=== PATIENT | female | born 1960 | race Caucasian/White ===

== ENCOUNTER 2017-11-05 12:50 | Emergency (ER) | payer BC ==
[2017-11-05 14:38] LABS: Appearance,Urine Clear (Clear); Bilirubin,Urine Negative (Negative); Blood,Urine Negative (Negative); Color,Urine Light Yellow; Glucose,Urine (UA) Negative (Negative); Ketones,Urine Negative (Negative); Leukocyte Esterase,Urine Negative (Negative); Nitrite,Urine Negative (Negative); PH, Urine 6.5 (5.0-8.0); Protein,Urine Negative (Negative); Specific Gravity,Urine 1.007 (1.001-1.035); Urobilinogen,Urine <2.0 mg/dL (<2.0)
[2017-11-05 14:42] LABS: Basophils % (A) 0 %; Eosinophils # (A) 0.1 k/uL (0-0.7); Eosinophils % (A) 1 %; HGB 14.1 gm/dL (11.4-16.0); Lymphocytes % (A) 9 %; MCH 30.6 pg (25.0-35.0); MCHC 33.5 g/dL (31.0-37.0); MCV 91.4 fL (80.0-100.0); Mean Platelet Volume 7.2; Monocytes # (A) 0.7 k/uL (0-1.0); Monocytes % (A) 6 %; Neutrophils # (A) 9.1 k/uL (1.3-7.7); Neutrophils % (A) 83 %; Platelet Count 231 k/uL (150-450)
[2017-11-05 14:54] LABS: ALT 76 U/L (9-52); AST 52 U/L (14-36); Albumin 4.1 g/dL (3.5-5.0); Alkaline Phosphatase 88 U/L (38-126); Amylase 57 U/L (30-110); Anion Gap 8 mmol/L; Blood Urea Nitrogen 16 mg/dL (7-17); Calcium 10.8 mg/dL (8.4-10.2); Carbon Dioxide 28 mmol/L (22-30); Chloride 106 mmol/L (98-107); Glucose 83 mg/dL (74-99); Lipase 63 U/L (23-300); Potassium 3.8 mmol/L (3.5-5.1); Sodium 142 mmol/L (137-145); Total Bilirubin 0.7 mg/dL (0.2-1.3); Total Protein 6.9 g/dL (6.3-8.2)
--- NOTE | 2017-11-05 16:22 | ED ---
General Adult HPI - General Chief complaint: Abdominal Pain Stated complaint: abdominl pain Time Seen by Provider: 11/05/17 16:02 Source: patient, RN notes reviewed Mode of arrival: ambulatory Limitations: no limitations - History of Present Illness Initial comments: Patient is a 57-year-old female presented to the emergency room today with a chief complaint of abdominal pain. She states the last few weeks she's been having some discomfort in the lower abdomen. States that she's also had some pain in her back. States today's located left lower quadrant. She does admit that she's noticed pain is worse with she is up moving around. Patient states she did see the PLAYGROUND ATTENDANT stated was nothing wrong with the ovaries. She did follow back up the family doctor who diagnosed with a urinary tract infection and she did finish antibiotics for this. She states she still expressing these pains that seem to come in waves. She describes it as aching. Denies any other complaints or symptoms. Patient denies any recent fever, chills, shortness of breath, chest pain, nausea or vomiting, dysuria or hematuria, headaches or visual changes, or any other complaints. - Related Data Home Medications Medication Instructions Recorded Confirmed Zolpidem Tartrate 5 mg PO HS 11/24/16 11/27/16 Previous Rx's Medication Instructions Recorded Ciprofloxacin HCl [Cipro] 500 mg PO Q12HR #14 tab 11/05/17 metroNIDAZOLE [Flagyl] 500 mg PO TID #21 tab 11/05/17 Allergies Allergy/AdvReac Type Severity Reaction Status Date / Time No Known Allergies Allergy Verified 11/05/17 13:01 Review of Systems ROS Statement: Those systems with pertinent positive or pertinent negative responses have been documented in the HPI. ROS Other: All systems not noted in ROS Statement are negative. Past Medical History Additional Past Medical History / Comment(s): HX OF POLYPS, IBS History of Any Multi-Drug Resistant Organisms: None Reported Past Surgical History: Cholecystectomy, Uterine Ablation Past Anesthesia/Blood Transfusion Reactions: Postoperative Nausea & Vomiting ( PONV) Past Psychological History: No Psychological Hx Reported Smoking Status: Never smoker Past Alcohol Use History: None Reported Past Drug Use History: None Reported - Past Family History Mother Family Medical History: Cancer Additional Family Medical History / Comment(s): SKIN General Exam - General Exam Comments Initial Comments: General: The patient is awake and alert. Eye: Pupils are equal, round and reactive to light. Extra-ocular movements are intact. No nystagmus. There is normal conjunctiva bilaterally. No signs of icterus. Ears, nose, mouth and throat: There are moist mucous membranes and no oral lesions. Neck: The neck is supple, there is no tenderness or JVD. Cardiovascular: There is a regular rate and rhythm. No murmur, rub or gallop is appreciated. Respiratory: Lungs are clear to auscultation, respirations are non-labored, breath sounds are equal. No wheezes, stridor, rales, or rhonchi. Gastrointestinal: Admits to palpation. Patient does have tenderness in left lower quadrant. No rebound, guarding or CVA tenderness. Musculoskeletal: Normal ROM, no tenderness. Sensation intact. Neurological: A&O x 3. CN II-XII intact, There are no obvious motor or sensory deficits. Coordination appears grossly intact. Speech is normal. Skin: Skin is warm and dry and no rashes or lesions are noted. Psychiatric: Cooperative, appropriate mood & affect, normal judgment. Limitations: no limitations Course Vital Signs 11/05/17 11/05/17 12:59 18:03 Temperature 98.2 F 98.4 F Pulse Rate 101 H 88 Respiratory 20 18 Rate Blood Pressure 122/77 130/70 O2 Sat by Pulse 96 97 Oximetry Medical Decision Making - Medical Decision Making Patient reexamined at this time shows no signs of distress is resting comfortably. Patient's labs are been reviewed shows an 11,000 white count with mildly elevated liver enzymes. Patient does have a known history of elevated liver enzymes that she had her family doctor has been following up with. Patient's CT of the abdomen and pelvis does reveal a mild diverticulitis. Results were discussed with the patient. Patient states she feels couple being discharged home so she does not understand the hospital. Will be started on Cipro and Flagyl. Patient is advised COME doctor the next 2 days return here to the emergency room if any symptoms increase worsen. - Lab Data Result diagrams: 11/05/17 14:20 11/05/17 14:20 Lab Results 11/05/17 11/05/17 11/05/17 Range/Units 14:20 14:20 14:20 WBC 11.0 H (3.8-10.6) k/uL RBC 4.60 (3.80-5.40) m/uL Hgb 14.1 (11.4-16.0) gm/dL Hct 42.0 (34.0-46.0) % MCV 91.4 (80.0-100.0) fL MCH 30.6 (25.0-35.0) pg MCHC 33.5 (31.0-37.0) g/dL RDW 13.0 (11.5-15.5) % Plt Count 231 (150-450) k/uL Neutrophils % 83 % Lymphocytes % 9 % Monocytes % 6 % Eosinophils % 1 % Basophils % 0 % Neutrophils # 9.1 H (1.3-7.7) k/uL Lymphocytes # 1.0 (1.0-4.8) k/uL Monocytes # 0.7 (0-1.0) k/uL Eosinophils # 0.1 (0-0.7) k/uL Basophils # 0.0 (0-0.2) k/uL Sodium 142 (137-145) mmol/L Potassium 3.8 (3.5-5.1) mmol/L Chloride 106 (98-107) mmol/L Carbon Dioxide 28 (22-30) mmol/L Anion Gap 8 mmol/L BUN 16 (7-17) mg/dL Creatinine 0.70 (0.52-1.04) mg/dL Est GFR (CKD-EPI)AfAm >90 (>60 ml/min/1.73 sqM) Est GFR (CKD-EPI)NonAf >90 (>60 ml/min/1.73 sqM) Glucose 83 (74-99) mg/dL Calcium 10.8 H (8.4-10.2) mg/dL Total Bilirubin 0.7 (0.2-1.3) mg/dL AST 52 H (14-36) U/L ALT 76 H (9-52) U/L Alkaline Phosphatase 88 (38-126) U/L Total Protein 6.9 (6.3-8.2) g/dL Albumin 4.1 (3.5-5.0) g/dL Amylase 57 (30-110) U/L Lipase 63 (23-300) U/L Urine Color Light Yellow Urine Appearance Clear (Clear) Urine pH 6.5 (5.0-8.0) Ur Specific [place] 1.007 (1.001-1.035) Urine Protein Negative (Negative) Urine Glucose (UA) Negative (Negative) Urine Ketones Negative (Negative) Urine Blood Negative (Negative) Urine Nitrite Negative (Negative) Urine Bilirubin Negative (Negative) Urine Urobilinogen <2.0 (<2.0) mg/dL Ur Leukocyte Esterase Negative (Negative) Disposition Clinical Impression: Acute diverticulitis Disposition: HOME SELF-CARE Condition: Good Instructions: Diverticulitis (ED) Additional Instructions: Please use medication as discussed. Please follow-up with family doctor in the next 2 days of symptoms have not improved. Please return to emergency room if the symptoms increase or worsen or for any other concerns. Prescriptions: Ciprofloxacin HCl [Cipro] 500 mg PO Q12HR #14 tab metroNIDAZOLE [Flagyl] 500 mg PO TID #21 tab Is patient prescribed a controlled substance at d/c from ED?: No Referrals: Rach Dixon DO [Primary Care Provider] - 1-2 days Time of Disposition: 18:55
[2017-11-05 18:04] VITALS: BP 130/70; PULSE 88; RESP 18; TEMP 98.4
--- NOTE | 2017-11-05 18:40 | CT ---
EXAMINATION TYPE: CT abdomen pelvis w con DATE OF EXAM: 11/05/2017 HISTORY: abdominal pain CT DLP: 1106 mGycm Automated exposure control for dose reduction was used. TECHNIQUE: Helical acquisition of images was performed from the lung bases through the pelvis. CONTRAST: Performed without Oral Contrast and with IV Contrast, patient injected with 100mL mL of Isovue 300. COMPARISON: None FINDINGS: LUNG BASES: No significant abnormality is appreciated. LIVER/GB: No significant abnormality is appreciated. PANCREAS: No significant abnormality is seen. SPLEEN: No significant abnormality is seen. ADRENALS: No significant abnormality is seen. KIDNEYS: No significant abnormality is seen. FREE AIR: No free air is visualized. RETROPERITONEAL ADENOPATHY: None visualized REPRODUCTIVE ORGANS: No acute process. Upper, retroverted uterus is noted, appearing right of midline . URINARY BLADDER: No significant abnormality is seen. PELVIC ADENOPATHY: None visualized. OSSEOUS STRUCTURES: No significant abnormality is seen. BOWEL: The lowermost descending colon show sequential mural thickening and marked indistinctness, al lance with surrounding edematous reticulation of the mesial: Associated with thickening and indistinctn ess of the adjacent lateral conal fascia. These findings are consistent with moderate plus acute dive rticulitis. There is no associated pneumoperitoneum or focal fluid collection. No pneumatosis. No bow el obstruction. Remainder of the bowel is negative for acute findings. OTHER: Vasculature is unremarkable. IMPRESSION: ACUTE DIVERTICULITIS, MODERATE IN DEGREE. IF NOT RECENTLY OBTAINED, EVENTUAL FOLLOW-UP COLONOSCOPY IS ADVISED TO ASSURE NORMAL UNDERLYING MUCOS A.
== END 2017-11-05 19:00 | disposition home or self-care (01) ==
LOC: EC 12:50
DX: K57.92 Diverticulitis of intestine, part unspecified, without perforation or abscess without bleeding (principal); D72.829 Elevated white blood cell count, unspecified; R74.8 Abnormal levels of other serum enzymes; K58.9 Irritable bowel syndrome, unspecified; Z90.49 Acquired absence of other specified parts of digestive tract; Z98.890 Other specified postprocedural states; Z79.899 Other long term (current) drug therapy
CPT/HCPCS: 36415; 74177; 80053; 81003; 82150; 83690; 85025; 99284

== ENCOUNTER → 2018-06-05 | Outpatient (CLI) | payer BC ==
--- NOTE | 2018-06-05 14:17 | MM ---
Reason for exam: screening (asymptomatic). History: Patient is postmenopausal. Physical Findings: A clinical breast exam by your physician is recommended on an annual basis and results should be correlated with mammographic findings. MG 3D Screening Mammo W/Cad Bilateral CC and MLO view(s) were taken. No prior studies available for comparison. The breast tissue is heterogeneously dense. This may lower the sensitivity of mammography. Finding #1: There is a 6 mm obscured oval mass located 6 cm from the nipple in the posterior middle position of the left breast on CC view (). Finding #2: There are typically benign round calcifications in the left breast. ASSESSMENT: Incomplete: need additional imaging evaluation, BI-RAD 0 RECOMMENDATION: Special view mammogram of the right breast. If lesion persists on supplemental views, image directed ultrasound is recommended. [facility] will attempt to contact patient to return for supplemental views and ultrasound if indicated.
== END ==
LOC: RADMAMWWP 08:08
PROVIDERS: ATTEND Family Medicine
DX: Z12.31 Encounter for screening mammogram for malignant neoplasm of breast (principal)
CPT/HCPCS: 77063; 77067

== ENCOUNTER → 2018-06-14 | Outpatient (CLI) | payer BC ==
--- NOTE | 2018-06-17 07:46 | MM ---
Reason for exam: additional evaluation requested from abnormal screening. Last mammogram was performed less than 1 month ago. History: Patient is postmenopausal. Took estrogen for 2 years. Took other hormone for 2 years. Physical Findings: Nurse did not find any significant physical abnormalities on exam. MG 3D Work Up W/Cad RT Spot compression CC and LM view(s) were taken of the right breast. Prior study comparison: June 05, 2018, bilateral MG 3d screening mammo w/cad. The breast tissue is heterogeneously dense. This may lower the sensitivity of mammography. There is no discrete abnormality. Area disperses on compression. These results were verbally communicated with the patient and result sheet given to the patient on 06/14/18. ASSESSMENT: Probably benign, BI-RAD 3 RECOMMENDATION: Follow-up diagnostic mammogram of the right breast in 6 months.
== END | disposition home or self-care (01) ==
LOC: RADMAMWWP 14:55
PROVIDERS: ATTEND Family Medicine
DX: R92.8 Other abnormal and inconclusive findings on diagnostic imaging of breast (principal)
CPT/HCPCS: 77061; 77065

== ENCOUNTER → 2020-06-02 | Outpatient (CLI) | payer BC ==
--- NOTE | 2020-06-02 15:02 | MM ---
Reason for exam: additional evaluation requested from prior study. Last mammogram was performed 2 years ago. History: Patient is postmenopausal. Took estrogen beginning at age 47. Took other hormone for 2 years. Physical Findings: Nurse did not find any significant physical abnormalities on exam. MG 3D Diag Mammo W/Cad FEROZ Bilateral CC and MLO view(s) were taken. Spot compression MLO view(s) were taken of the left breast. Prior study comparison: June 14, 2018, right breast MG 3d work up w/cad RT. June 05, 2018, bilateral MG 3d screening mammo w/cad. There are scattered fibroglandular densities. No significant new findings when compared with previous films. These results were verbally communicated with the patient and result sheet given to the patient on 06/02/20. ASSESSMENT: Benign, BI-RAD 2 RECOMMENDATION: Routine screening mammogram of both breasts in 1 year.
--- NOTE | 2020-06-02 15:04 | USB ---
Reason for exam: additional evaluation requested from prior study. History: Patient is postmenopausal. Took estrogen beginning at age 47. Took other hormone for 2 years. US Breast Limited LT Left limited breast ultrasound including focal area of concern, retroareolar and axilla demonstrates a 0.3 x 0.2 x 0.4cm lesion too small to characterize at 3 o'clock. These results were verbally communicated with the patient and result sheet given to the patient on 06/02/20. ASSESSMENT: Probably benign, BI-RAD 3 RECOMMENDATION: Ultrasound of the left breast in 6 months.
== END | disposition home or self-care (01) ==
LOC: RADMAMWWP 12:58
PROVIDERS: ATTEND Obstetrics & Gynecology
DX: R92.8 Other abnormal and inconclusive findings on diagnostic imaging of breast (principal)
CPT/HCPCS: 77062; 77066

== ENCOUNTER 2020-12-11 16:52 | Emergency (ER) | payer BC ==
[2020-12-11 18:06] VITALS: BP 160/81; TEMP 97.6
[2020-12-11] MEDS ORDERED: KETOROLAC 15 MG/ML 1 ML VIAL IVP STA (18:56)
[2020-12-11] MEDS ORDERED: ONDANSETRON 4 MG/2 ML VIAL IVP STA (18:56)
[2020-12-11] MEDS ORDERED: HYDROmorphone 0.5 MG/0.5 ML SYRINGE IVP STA (18:57)
[2020-12-11] MEDS ORDERED: SODIUM CHLORIDE 0.9% 1,000 ML IV ONE (18:58)
--- NOTE | 2020-12-11 19:28 | ED ---
General Adult HPI - General Chief complaint: Back Pain/Injury Stated complaint: lt sided flank pain Time Seen by Provider: 12/11/20 18:10 Source: patient Mode of arrival: wheelchair Limitations: no limitations - History of Present Illness Initial comments: 60-year-old female presents to the emergency Department with complaints of 3 day history of left flank discomfort. Patient states that pain began as a mild discomfort and has progressively worsened. SHe reports pain now radiates into the left lower abdomen and groin, and is accompanied by nausea and vomiting. Denies any aggravating or alleviating factors. No medications taken prior to arrival. Patient denies fever, chills, chest pain, difficulty breathing, constipation or diarrhea, dysuria, or hematuria. - Related Data Home Medications Medication Instructions Recorded Confirmed Calcium Carbonate [Calcium] 600 mg PO DAILY 12/11/20 12/11/20 Cholecalciferol [Vitamin D3 (25 25 mcg PO DAILY 12/11/20 12/11/20 Mcg = 1000 Iu)] Raloxifene [Evista] 60 mg PO DAILY 12/11/20 12/11/20 Previous Rx's Medication Instructions Recorded Ketorolac [Toradol] 10 mg PO Q8HR #15 tab 12/11/20 Allergies Allergy/AdvReac Type Severity Reaction Status Date / Time No Known Allergies Allergy Verified 12/11/20 20:27 Review of Systems ROS Statement: Those systems with pertinent positive or pertinent negative responses have been documented in the HPI. ROS Other: All systems not noted in ROS Statement are negative. Past Medical History Additional Past Medical History / Comment(s): HX OF POLYPS, IBS History of Any Multi-Drug Resistant Organisms: None Reported Past Surgical History: Cholecystectomy, Uterine Ablation Past Anesthesia/Blood Transfusion Reactions: Postoperative Nausea & Vomiting (PONV) Past Psychological History: No Psychological Hx Reported Smoking Status: Never smoker Past Alcohol Use History: None Reported Past Drug Use History: None Reported - Past Family History Mother Family Medical History: Cancer Additional Family Medical History / Comment(s): SKIN General Exam Limitations: no limitations (Well-developed, well-nourished female in no acute distress. Initial temperature 97.6, pulse 87, respirations 18, blood pressure 160/81, pulse ox 97% on room air.) General appearance: alert, in no apparent distress ENT exam: Present: normal exam, mucous membranes moist Respiratory exam: Present: normal lung sounds bilaterally. Absent: respiratory distress, wheezes, rales, rhonchi, stridor Cardiovascular Exam: Present: regular rate, normal rhythm, normal heart sounds. Absent: systolic murmur, diastolic murmur, rubs, gallop, clicks GI/Abdominal exam: Present: soft, normal bowel sounds, other (1 episode of vomiting during exam). Absent: distended, tenderness, guarding Back exam: Present: CVA tenderness (L) Neurological exam: Present: alert, oriented X3, CN II-XII intact Psychiatric exam: Present: normal affect, normal mood Skin exam: Present: warm, dry, intact, normal color. Absent: rash Course Vital Signs 12/11/20 12/11/20 18:04 23:20 Temperature 97.6 F Pulse Rate 87 90 Respiratory 18 16 Rate Blood Pressure 160/81 O2 Sat by Pulse 97 95 Oximetry - Reevaluation(s) Reevaluation #1: 12/11/20 20:13 Patient significantly improved after pain medicine and nausea medicine. Attempting to provide urine specimen at this time. Able to tolerate sips of water. Medical Decision Making - Medical Decision Making 60-year-old female presents to the emergency department with complaints of left flank pain. Upon exam, patient appears very uncomfortable, restless, and had one episode of vomiting. Left CVA tenderness noted. Patient verbalized suspicion for kidney stone. She was hydrated and given pain medicine and nausea medicine with significant improvement. Lab work was obtained and showed slight elevation in BUN and creatinine. Urine is positive for blood, ketones, and protein. Presence of calcium oxalate crystals and hyaline casts were noted as well. Urine RBC > 182. CT confirmed presence of 4 mm mid left ureter calculus and showed mild upstream hydroureter nephrosis and periureteral/perinephric fat stranding. Results were discussed with patient. She verbalizes readiness to go home. Discussed options for pain management, patient will be prescribed Toradol. Instructed to strain her urine, increase fluids, and follow up with her primary care provider for a recheck in 1-2 days. Return parameters were discussed in detail. Patient verbalizes understanding and agrees with this plan. This case was discussed with my attending Dr. Tompkins. - Lab Data Result diagrams: 12/11/20 19:17 12/11/20 19:17 Lab Results 12/11/20 12/11/20 12/11/20 Range/Units 19:17 19:17 20:41 WBC 9.0 (3.8-10.6) k/uL RBC 5.18 (3.80-5.40) m/uL Hgb 15.8 (11.4-16.0) gm/dL Hct 46.8 H (34.0-46.0) % MCV 90.4 (80.0-100.0) fL MCH 30.5 (25.0-35.0) pg MCHC 33.8 (31.0-37.0) g/dL RDW 13.3 (11.5-15.5) % Plt Count 245 (150-450) k/uL MPV 7.5 Neutrophils % 87 % Lymphocytes % 6 % Monocytes % 4 % Eosinophils % 1 % Basophils % 0 % Neutrophils # 7.9 H (1.3-7.7) k/uL Lymphocytes # 0.6 L (1.0-4.8) k/uL Monocytes # 0.3 (0-1.0) k/uL Eosinophils # 0.1 (0-0.7) k/uL Basophils # 0.0 (0-0.2) k/uL Sodium 138 (137-145) mmol/L Potassium 3.9 (3.5-5.1) mmol/L Chloride 104 (98-107) mmol/L Carbon Dioxide 23 (22-30) mmol/L Anion Gap 11 mmol/L BUN 20 H (7-17) mg/dL Creatinine 1.06 H (0.52-1.04) mg/dL Est GFR (CKD-EPI)AfAm 66 (>60 ml/min/1.73 sqM) Est GFR (CKD-EPI)NonAf 57 (>60 ml/min/1.73 sqM) Glucose 133 H (74-99) mg/dL Calcium 11.9 H (8.4-10.2) mg/dL Urine Color Light Red Urine Appearance Cloudy H (Clear) Urine pH 6.0 (5.0-8.0) Ur Specific [place] 1.018 (1.001-1.035) Urine Protein 1+ H (Negative) Urine Glucose (UA) Negative (Negative) Urine Ketones 2+ H (Negative) Urine Blood Large H (Negative) Urine Nitrite Negative (Negative) Urine Bilirubin Negative (Negative) Urine Urobilinogen <2.0 (<2.0) mg/dL Ur Leukocyte Esterase Small H (Negative) Urine RBC >182 H (0-5) /hpf Urine WBC 21 H (0-5) /hpf Calcium Oxalate Crystal Many H (None) /hpf Hyaline Casts 10 H (0-2) /lpf Urine Mucus Few H (None) /hpf - Radiology Data Radiology results: report reviewed, image reviewed CT of the abdomen and pelvis with contrast was obtained. Report was reviewed in its entirety. Impression per Dr. Starr are as follows: #1. 4 mm mid left ureteral calculus with mild upstream hydroureteronephrosis and periureteral/perinephric fat stranding. #2. Heterogenous appearance of the spleen with multiple subcentimeter hypoattenuating areas. Findings may relate to contrast timing, however, recommend appropriate clinical and laboratory correlation. If there is clinical concern, consider further evaluation with MRI or ultrasound. #3. 7 mm pulmonary nodule in the right lower lobe. Recommend repeat CT chest in 6 months to ensure stability. #4. Distal colonic diverticulosis without evidence of diverticulitis. Disposition Clinical Impression: Renal calculus, left, Nausea & vomiting Disposition: HOME SELF-CARE Condition: Stable Instructions (If sedation given, give patient instructions): Kidney Stones (ED), Acute Nausea and Vomiting (ED) Additional Instructions: Drink lots of water. Take medications as prescribed. Strain your urine. Follow-up family doctor for recheck on Sunday. Prescriptions: Ketorolac [Toradol] 10 mg PO Q8HR #15 tab Is patient prescribed a controlled substance at d/c from ED?: No Referrals: Rach Dixon DO [Primary Care Provider] - 1-2 days Time of Disposition: 23:08
[2020-12-11 19:34] LABS: Basophils % (A) 0 %; Eosinophils # (A) 0.1 k/uL (0-0.7); Eosinophils % (A) 1 %; HCT 46.8 % (34.0-46.0); HGB 15.8 gm/dL (11.4-16.0); Lymphocytes # (A) 0.6 k/uL (1.0-4.8); Lymphocytes % (A) 6 %; MCH 30.5 pg (25.0-35.0); MCHC 33.8 g/dL (31.0-37.0); MCV 90.4 fL (80.0-100.0); Mean Platelet Volume 7.5; Monocytes # (A) 0.3 k/uL (0-1.0); Monocytes % (A) 4 %; Neutrophils # (A) 7.9 k/uL (1.3-7.7); Neutrophils % (A) 87 %; Platelet Count 245 k/uL (150-450); RBC 5.18 m/uL (3.80-5.40); RDW 13.3 % (11.5-15.5)
[2020-12-11 20:04] LABS: Calcium 11.9 mg/dL (8.4-10.2); Potassium 3.9 mmol/L (3.5-5.1)
[2020-12-11 21:18] LABS: Appearance,Urine Cloudy (Clear); Bilirubin,Urine Negative (Negative); Blood,Urine Large (Negative); Calcium Oxalate Crystals,Urine Many /hpf; Color,Urine Light Red; Glucose,Urine (UA) Negative (Negative); Hyaline Casts,Urine 10 /lpf (0-2); Ketones,Urine 2+ (Negative); Leukocyte Esterase,Urine Small (Negative); Mucus,Urine Few /hpf; Nitrite,Urine Negative (Negative); Protein,Urine 1+ (Negative); RBC,Urine >182 /hpf (0-5); Specific Gravity,Urine 1.018 (1.001-1.035); Urobilinogen,Urine <2.0 mg/dL (<2.0); WBC,Urine 21 /hpf (0-5)
--- NOTE | 2020-12-11 22:11 | CT ---
EXAMINATION TYPE: CT abdomen pelvis w con DATE OF EXAM: 12/11/2020 COMPARISON: CT abdomen/pelvis 11/05/2017 HISTORY: Left flank pain with hematuria. CT DLP: 926.6 mGycm. Automated Exposure Control for Dose Reduction was Utilized. TECHNIQUE: Multiple contiguous axial CT images of the abdomen and pelvis were obtained from the lung bases through the pubic symphysis with IV Contrast, patient injected with 100 mL of Isovue 300. 2-D s agittal and coronal reformatted images were obtained. FINDINGS: Lung bases demonstrate bibasilar subsegmental atelectasis and/or scarring. 7 mm pulmonary nodule righ t middle lobe Liver, pancreas, and bilateral adrenal glands have an unremarkable enhanced appearance. Heterogeneous appearance of the spleen with multiple subcentimeter hypoattenuating areas. Gallbladder is absent. No definite intrahepatic or extrahepatic biliary ductal dilatation. Kidneys are symmetric in size. Mild left-sided hydroureteronephrosis. No right-sided hydronephrosis. Nonobstructing left renal calculus measuring 5 mm. 4 mm mid left ureteral calculus. No right renal or ureteral calculi. Urinary bladder appears unremarkable. Uterus is present. No adnexal masses. Visualized bowel is of normal caliber without evidence of obstruction. No significant mesenteric infl ammation. Moderate distal colonic diverticulosis without adjacent inflammatory changes. Appendix appe ars unremarkable. No free air. Abdominal aorta is of normal caliber. No intra-abdominal or retroperitoneal lymphadenopathy. Subcutan eous soft tissues appear unremarkable. Mild degenerative changes at L5-S1. IMPRESSION: 1. 4 mm mid left ureteral calculus with mild upstream hydroureteronephrosis and periureteral/perineph eligio fat stranding. 2. Heterogeneous appearance of the spleen with multiple subcentimeter hypoattenuating areas. Findings may relate to contrast timing; however, recommend appropriate clinical and laboratory correlation. I f there is clinical concern consider further evaluation with MRI or ultrasound. 3. 7 mm pulmonary nodule in the right lower lobe. Recommend repeat CT chest in 6 months to ensure sta bility. 4. Distal colonic diverticulosis without evidence of diverticulitis.
[2020-12-11] MEDS ORDERED: IBUPROFEN 600 MG STARTER PACK 4 TAB BTL PO STA (22:38)
[2020-12-11] MEDS ORDERED: ACET/COD 300 MG/30 MG STARTER PACK 6 TAB BTL PO STA (22:38)
[2020-12-11] MEDS ORDERED: TAMSULOSIN 0.4 MG CAP.ER.24H PO STA (22:38)
[2020-12-11] MEDS ORDERED: ONDANSETRON 4 MG ODT STARTER PACK 2 TAB BTL PO STA (23:03)
[2020-12-11 23:21] VITALS: PULSE 90; RESP 16
== END 2020-12-11 23:21 | disposition home or self-care (01) ==
LOC: EC 16:52
DX: N13.2 Hydronephrosis with renal and ureteral calculous obstruction (principal); Z79.1 Long term (current) use of non-steroidal anti-inflammatories (NSAID); Z90.49 Acquired absence of other specified parts of digestive tract
CPT/HCPCS: 36415; 80048; 85025; 81001; 87086; 74177; 99284; 96374; 96375 ×2; 96361; J2405; J1885; S0119; J1170; Q9967

== ENCOUNTER → 2021-10-18 | Outpatient (CLI) | payer BC ==
--- NOTE | 2021-10-18 08:58 | CT ---
EXAMINATION TYPE: CT chest wo con DATE OF EXAM: 10/18/2021 COMPARISON: 12/11/2020 HISTORY: abn CT abd pelvis, solitary pulmonary nodule CT DLP: 237.4 mGycm. Automated Exposure Control for Dose Reduction was Utilized. TECHNIQUE: CT scan of the thorax is performed without IV contrast. FINDINGS: LUNGS: The lungs are grossly clear, there is no concerning parenchymal consolidation identified. Th ere is no pleural effusion or pneumothorax seen. The tracheobronchial tree is patent. Biapical pleur al thickening. Subsegmental changes most of both atelectasis. Previously noted right middle lobe nodu le no longer seen. Very minimal strandy attenuation in the region likely in the basis of atelectasis. MEDIASTINUM: Lack of IV contrast is noted to limit evaluation for mediastinal and especially hilar ad enopathy. There are borderline subcarinal lymphadenopathy measuring 1.0 cm. Finding nonspecific.. N o cardiomegaly or pericardial effusion is seen. Borderline 1 cm prominent lymph node in the right hil um. OTHER: Right lobe of thyroid appears prominent in size correlate clinically. Osseous structures intac t. Slight curvature of the spine noted.. Cannot exclude periportal borderline lymphadenopathy IMPRESSION: 1. No sizable pulmonary nodule seen on today's exam. Minimal stranding attenuation in the region of t he previous 7 mm nodule likely in the basis of atelectasis. 2. Enlarged right lobe of the thyroid. 3. Borderline subcarinal\mediastinal\and hilar and periportal lymphadenopathy measuring 1 cm. Finding nonspecific. Correlate clinically..
== END | disposition home or self-care (01) ==
LOC: RADCTMAIN 08:28
PROVIDERS: ATTEND Family Medicine
DX: E04.9 Nontoxic goiter, unspecified (principal)
CPT/HCPCS: 71250

== ENCOUNTER → 2024-05-27 | Outpatient (CLI) | payer BC ==
--- NOTE | 2024-05-27 09:20 | MM ---
Reason for Exam: Screening (asymptomatic). Last mammogram was performed 1 year(s) and 5 month(s) ago. Patient History: Menarche at age 13. First Full-Term at age 28. Postmenopausal. Estrogen, from age 47 until age 52. Risk Values: Iesha 5 year model risk: 1.7%. NCI Lifetime model risk: 7.4%. Prior Study Comparison: 06/02/2020 Bilateral Diagnostic Mammogram, [facility]. 12/12/2022 Bilateral Screening Mammogram, [facility]. 01/16/2023 Bilateral Diagnostic Mammogram, [facility]. Tissue Density: There are scattered areas of fibroglandular density. Findings: Analyzed By CAD. Chronic nodularity lateral anterior right breast and central posterior left MLO view. There is no suspicious group of microcalcifications or new suspicious mass in either breast. Overall Assessment: Benign, BI-RAD 2 Management: Screening Mammogram of both breasts in 1 year. Patient should continue monthly self-breast exams. A clinical breast exam by your physician is recommended on an annual basis. This exam should not preclude additional follow-up of suspicious palpable abnormalities. Note on Iesha scores and lifetime risk: 1. A Iesha score greater than 3% is considered moderate risk. If this is the case, consider specialist referral to assess eligibility for a risk reducing agent. 2. If overall lifetime risk for the development of breast cancer is 20% or higher, the patient may qualify for future screening with alternating mammogram and breast MRI. [facility], , 05/27/2024 9:18 AM. Electronically signed and approved by: Adelia Vega M.D. Radiologist
== END | disposition home or self-care (01) ==
LOC: RADMAMWWP 07:20
PROVIDERS: ATTEND Family Medicine
DX: Z12.31 Encounter for screening mammogram for malignant neoplasm of breast (principal); R92.323 Mammographic fibroglandular density, bilateral breasts; Z78.0 Asymptomatic menopausal state
CPT/HCPCS: 77063; 77067